=== PATIENT | female | born 1955 | race Caucasian/White ===

== ENCOUNTER 2017-12-15 22:03 | Inpatient (IN) | payer BC ==
[~2017-12-15] VITALS: Ht 157.5 cm; Wt 127.0 kg
[2017-12-15 22:10] VITALS: Ht 157.5 cm; Wt 127.0 kg
[2017-12-16] VITALS (9 sets, daily range): BP systolic 86–112; BP diastolic 39–73
[2017-12-16 00:54] LABS: BASOPHIL % 0.4 % (0-2); PLATELET COUNT 303 x10^3mcL (130-400)
[2017-12-16 00:55] LABS: RED CELL DISTRIBUTION WIDTH 16.3 % (11.5-14.5)
[2017-12-16 01:04] LABS: CALCIUM 9.1 mg/dL (8.5-10.1); CARBON DIOXIDE 33.8 mmol/L (21-32); CREATININE SERUM 1.2 mg/dL (0.6-1.0); POTASSIUM SERUM 3.4 mmol/L (3.5-5.1)
[2017-12-16 01:18] LABS: ALBUMIN 3.4 g/dL (3.4-5.0); BILIRUBIN TOTAL 0.4 mg/dL (0.20-1.00); FREE T4 1.1 ng/dL (0.76-1.46); TOTAL PROTEIN, SERUM 8.8 g/dL (6.4-8.2)
[2017-12-16] MEDS ORDERED: GOOD SENSE ASPI81 M3 (03:44)
[2017-12-16] MEDS ORDERED: PROVENTIL0.09 MG/A1 (03:44)
[2017-12-16] MEDS ORDERED: KLOR-CON M2020 MEQ (03:44)
[2017-12-16] MEDS ORDERED: METOLAZONE2.5 M1 (03:45)
[2017-12-16] MEDS ORDERED: ALBUTEROL0.63 MG/3 (03:45)
[2017-12-16] MEDS ORDERED: ADV250/50 (03:45)
[2017-12-16] MEDS ORDERED: COZAAR100 MG (03:45)
[2017-12-16] MEDS ORDERED: ALDACTONE25 MG (03:45)
[2017-12-16] MEDS ORDERED: TOPROL XL25 MG (03:46)
[2017-12-16] MEDS ORDERED: FUROSEMIDE40 MG (03:46)
[2017-12-16] MEDS ORDERED: MONTELUKAST SOD10 M1 (03:46)
[2017-12-16] MEDS ORDERED: LIPITOR80 MG (03:46)
[2017-12-16] MEDS ORDERED: INS5050 (03:46)
[2017-12-16 04:18] LABS: MAGNESIUM 1.6 mg/dL (1.8-2.4); PHOSPHOROUS 3.3 mg/dL (2.5-4.9)
[2017-12-16 04:25] LABS: FREE T4 1.08 ng/dL (0.76-1.46); FREE THYROXINE INDEX 2.8 ug/dL (1.4-4.5); T4(THYROXINE) 8.3 ug/dL (4.7-13.3)
[2017-12-16 04:27] LABS: T3 TOTAL 1.28 ng/mL
[2017-12-16 04:30] LABS: UA SPECIFIC GRAVITY 1.025 (1.005-1.035); microscopic required? YES; urine erythrocyte 1+ (NEGATIVE)
[2017-12-16 06:33] LABS: CALCIUM 8.7 mg/dL (8.5-10.1); CARBON DIOXIDE 32.1 mmol/L (21-32); CREATININE SERUM 1.1 mg/dL (0.6-1.0); MAGNESIUM 1.6 mg/dL (1.8-2.4); PHOSPHOROUS 5.3 mg/dL (2.5-4.9)
[2017-12-16 07:09] LABS: BASOPHIL % 0.4 % (0-2); PLATELET COUNT 281 x10^3mcL (130-400)
[2017-12-16 07:10] LABS: RED CELL DISTRIBUTION WIDTH 15.9 % (11.5-14.5)
[2017-12-16 15:51] LABS: AMPHETAMINE QUAL UR NONE DETECTED (NEG <=1000)
[2017-12-16 18:27] LABS: CALCIUM 8.8 mg/dL (8.5-10.1); CARBON DIOXIDE 22.5 mmol/L (21-32); CREATININE SERUM 1.6 mg/dL (0.6-1.0); POTASSIUM SERUM 4.5 mmol/L (3.5-5.1)
[2017-12-17] VITALS (9 sets, daily range): BP systolic 81–104; BP diastolic 34–60
[2017-12-17 06:33] LABS: CALCIUM 8.7 mg/dL (8.5-10.1); CARBON DIOXIDE 26.2 mmol/L (21-32); CREATININE SERUM 1.5 mg/dL (0.6-1.0); MAGNESIUM 2.1 mg/dL (1.8-2.4); PHOSPHOROUS 4.9 mg/dL (2.5-4.9)
[2017-12-17 07:05] LABS: PLATELET COUNT 258 x10^3mcL (130-400)
[2017-12-17 07:07] LABS: BASOPHIL % 0 % (0-2); RED CELL DISTRIBUTION WIDTH 16.1 % (11.5-14.5)
[2017-12-18 06:23] VITALS: BP 110/66
[2017-12-18 06:33] LABS: BASOPHIL % 0.1 % (0-2); PLATELET COUNT 283 x10^3mcL (130-400)
[2017-12-18 06:45] LABS: CALCIUM 8.7 mg/dL (8.5-10.1); CARBON DIOXIDE 26.9 mmol/L (21-32); CREATININE SERUM 1.1 mg/dL (0.6-1.0); POTASSIUM SERUM 3.6 mmol/L (3.5-5.1)
[2017-12-18 06:50] LABS: RED CELL DISTRIBUTION WIDTH 16.1 % (11.5-14.5)
[2017-12-18 10:00] VITALS: BP 95/44
[2017-12-18 14:11] VITALS: BP 99/46
[2017-12-18 14:12] VITALS: BP 104/58
[2017-12-18 15:27] VITALS: BP 104/58
[2017-12-18] MEDS ORDERED: COZAAR25 M1 PO (17:16)
[2017-12-18] MEDS ORDERED: HUMULIN R500 UNIT/1 SQ (17:16)
[2017-12-18] MEDS ORDERED: PROVENTIL0.09 MG/A1 INH (17:16)
[2017-12-18] MEDS ORDERED: ALBUTEROL SULFAT3 ML NEB (17:16)
[2017-12-18 18:14] VITALS: BP 133/60
== END 2017-12-18 18:21 | disposition home or self-care (01) | DRG 73 ==
LOC: ED 22:03 → DU 12-16 03:25
PROVIDERS: Emergency Medicine; Family Medicine
DX: E11.43 Type 2 diabetes mellitus with diabetic autonomic (poly)neuropathy (principal); G93.41 Metabolic encephalopathy; Z68.43 Body mass index [BMI] 50.0-59.9, adult; J44.1 Chronic obstructive pulmonary disease with (acute) exacerbation; E66.2 Morbid (severe) obesity with alveolar hypoventilation; E44.1 Mild protein-calorie malnutrition; K31.84 Gastroparesis; E11.65 Type 2 diabetes mellitus with hyperglycemia; E11.42 Type 2 diabetes mellitus with diabetic polyneuropathy; E11.649 Type 2 diabetes mellitus with hypoglycemia without coma; E87.6 Hypokalemia; Z99.81 Dependence on supplemental oxygen; Z99.3 Dependence on wheelchair; Z79.4 Long term (current) use of insulin; E65 Localized adiposity; Z88.6 Allergy status to analgesic agent; Z88.0 Allergy status to penicillin; Z88.8 Allergy status to other drugs, medicaments and biological substances; I50.9 Heart failure, unspecified; E78.5 Hyperlipidemia, unspecified; G51.0 Bell's palsy; Z79.82 Long term (current) use of aspirin; G90.8 Other disorders of autonomic nervous system; Z90.49 Acquired absence of other specified parts of digestive tract; E11.51 Type 2 diabetes mellitus with diabetic peripheral angiopathy without gangrene; E02 Subclinical iodine-deficiency hypothyroidism
CPT/HCPCS: 36600; 82947; 82962; 83880; 84439; 87804; 97110-GP; 97116-GP; B4164; J1644; J1815; J2920; J2930; J3475; J3490; J7030; J7620; J7633; Q0092